=== PATIENT | male | born 1970 | race Caucasian/White ===

== ENCOUNTER → 2016-04-25 | Outpatient (CLI) | payer MEDICARE ==
--- NOTE | 2016-04-25 14:59 | XR ---
EXAMINATION TYPE: XR shoulder complete LT DATE OF EXAM: 04/25/2016 2:51 PM COMPARISON: NONE HISTORY: Pain TECHNIQUE: Shoulder examined in 3 views FINDINGS: The humeral head articulates with the glenoid. The acromio-clavicular junction is normal. No acute fractures or dislocations are evident. Intracapsular joint calcifications appear to be present. A follow up study can be performed 7-10 days from acute trauma for continued pain. IMPRESSION: 1. Intracapsular joint calcifications. 2. An acute osseous abnormality is not identified.
== END | disposition home or self-care (01) ==
LOC: RADXRMAIN 14:38
PROVIDERS: ATTEND Family Medicine
DX: M25.512 Pain in left shoulder (principal)

== ENCOUNTER → 2016-07-04 | Outpatient (CLI) | payer MEDICARE ==
--- NOTE | 2016-07-04 17:46 | MR ---
EXAMINATION TYPE: MR lumbar spine wo con DATE OF EXAM: 07/04/2016 3:43 PM COMPARISON: NONE HISTORY: LBP, BLE radic, loss of bowel control, surgery 1999 Multiplanar, MultiSpin echo imaging of the lumbar spine was performed. L1-L2: Mild disc desiccation. Mild subligamentous disc herniation is noted. Mild effacement ventral t hecal sac. No evidence for central stenosis. No evidence for foraminal encroachment. L2-L3: Normal disc appearance without desiccation. No herniation, protrusion or disc bulging. No ca nal stenosis is present. Foramina are patent bilaterally. L3-L4: Normal disc appearance without desiccation. No herniation, protrusion or disc bulging. No ca nal stenosis is present. Foramina are patent bilaterally. L4-L5: Moderate to severe disc desiccation noted. Degenerative endplate marrow change. Left hemilamin ectomy changes suggested at this level. Probable granulation tissue. No definite evidence for central stenosis. Mild bilateral foraminal encroachment. Facet joint arthropathy. L5-S1: Normal disc appearance without desiccation. No herniation, protrusion or disc bulging. No ca nal stenosis is present. Foramina are patent bilaterally. Lumbar segments are intact. No paraspinal masses are identified. Conus medullaris has a normal appe arance. Apparent thickening of the cauda equina to be postoperative in nature however I cannot exclud e arachnoiditis. L1 hemangioma. IMPRESSION: 1. Subligamentous herniation noted at L1-2 without giancarlo central stenosis although there is constrict ion of the thecal sac. 2. Postoperative changes at L4-5. Degenerative disc disease at this level. 3. Thickening of the cauda equina may reflect arachnoiditis. Correlate clinically.
== END | disposition home or self-care (01) ==
LOC: RADMRIMAIN 15:06
PROVIDERS: ATTEND Family Medicine
DX: M51.26 Other intervertebral disc displacement, lumbar region (principal); M51.36 Other intervertebral disc degeneration, lumbar region
CPT/HCPCS: 72148

== ENCOUNTER → 2016-09-04 | Outpatient (CLI) | payer MEDICARE ==
--- NOTE | 2016-09-04 21:05 | MR ---
EXAMINATION TYPE: MR thoracic spine wo con DATE OF EXAM: 09/04/2016 COMPARISON: NONE HISTORY: Intervertebral disc displacement thoracic region per order. TECHNIQUE: Multiplanar, multisequence imaging of thoracic spine is performed without contrast FINDINGS: Surgical change C3-C5 level is suspected on sagittal T2 counting sequence. Spinal cord leyla ws normal course, caliber, and signal as it courses the thoracic spine. Vertebral body heights and a lignment are satisfactory. Disc space heights are maintained. There are small posterior disc herniati on seen T8-T9 and T11-T12 levels on sagittal images. Additional tiny disc herniation is noted T10-T11 level on sagittal image. Bone marrow signal intensity is preserved. No significant spurring is seen. Review of the axial images confirms right paracentral disc protrusion effacing anterolateral thecal s ac T8-T9 level on axial image 14, bilateral neural foramina are patent. Axial images at T11-T12 level show broad-based central disc protrusion effacing anterior thecal sac a nd mild ligamentum flavum hypertrophy effacing posterior lateral thecal sac and axial image 5, bilate ral neural foramina remain patent. Remainder levels are felt within normal limits on axial images. IMPRESSION: Multilevel small posterior disc herniations in the lower thoracic spine as detailed above .
== END | disposition home or self-care (01) ==
LOC: RADMRIMAIN 19:31
PROVIDERS: ATTEND Neurological Surgery
DX: M51.24 Other intervertebral disc displacement, thoracic region (principal); M54.12 Radiculopathy, cervical region
CPT/HCPCS: 72146

== ENCOUNTER → 2016-09-05 | Outpatient (CLI) | payer MEDICARE ==
--- NOTE | 2016-09-07 08:51 | MR ---
EXAMINATION TYPE: MR cervical spine wo con DATE OF EXAM: 09/05/2016 COMPARISON: NONE HISTORY: Pain TECHNIQUE: Multiplanar, multisequence images of the cervical spine were acquired. C2-C3: No evidence for degenerative disc disease. No disc bulge/herniation or protrusion. No Canal stenosis. Foramina are patent bilaterally. Facet arthropathy noted. C3-C4: Postsurgical change. There is facet arthropathy but no canal stenosis, disc herniation or fora amanda encroachment. C4-C5: Postsurgical change with uncovertebral joint hypertrophy. Mild bilateral foraminal encroachmen t and facet arthropathy. No canal stenosis or disc herniation. C5-C6: Degenerative disc disease with uncovertebral joint hypertrophy and left lateral disc bulging w ith severe left-sided foraminal encroachment and moderate right-sided foraminal encroachment. No Conley l stenosis. C6-C7: Broad-based central disc protrusion with a focal left paracentral component which may represen t a small extruded disc fragment. There is mild effacement of thecal sac. Mild foraminal encroachment bilaterally. There is facet arthropathy. C7-T1: No evidence for degenerative disc disease. No disc bulge/herniation or protrusion. No Canal stenosis. Foramina are patent bilaterally. Cervical segments are intact. There is normal alignment. Cervical spinal cord is of normal signal. Craniovertebral junction relationships are within normal limits. IMPRESSION: 1. Postsurgical change with suspected disc herniation C6-C7 with possible extruded fragment. Postcont rast imaging recommended for further characterization and to exclude other etiologies. 2. Posterior cervical spondylosis with uncovertebral joint facet hypertrophy and disc bulging greater laterally to left C5-C6 significant left-sided foraminal encroachment.
== END | disposition home or self-care (01) ==
LOC: RADMRIMAIN 21:24
PROVIDERS: ATTEND Neurological Surgery
DX: M50.122 Cervical disc disorder at C5-C6 level with radiculopathy (principal); M47.22 Other spondylosis with radiculopathy, cervical region; M46.02 Spinal enthesopathy, cervical region; M51.24 Other intervertebral disc displacement, thoracic region; Z98.890 Other specified postprocedural states
CPT/HCPCS: 72141

== ENCOUNTER → 2016-11-27 | Outpatient (CLI) | payer MEDICARE ==
--- NOTE | 2016-11-27 10:25 | XR ---
EXAMINATION TYPE: XR chest 2V DATE OF EXAM: 11/27/2016 COMPARISON: NONE HISTORY: Presurgical study. History of hypertension. TECHNIQUE: Frontal and lateral views of the chest are obtained. FINDINGS: There is no focal air space opacity, pleural effusion, or pneumothorax seen. The cardiac silhouette size is within normal limits. The osseous structures are intact. IMPRESSION: No acute cardiopulmonary process.
== END | disposition home or self-care (01) ==
LOC: RADXRMAIN 09:49
PROVIDERS: ATTEND Physician Assistant
DX: Z01.818 Encounter for other preprocedural examination (principal); Z01.810 Encounter for preprocedural cardiovascular examination
CPT/HCPCS: 71020; 87070; 93005

== ENCOUNTER → 2017-05-21 | Outpatient (CLI) | payer MEDICARE ==
--- NOTE | 2017-05-21 20:38 | MR ---
EXAMINATION TYPE: MR lumbar spine wo con DATE OF EXAM: 05/21/2017 COMPARISON: 07/04/2016 HISTORY: low back pain TECHNIQUE: Multiplanar, multisequence images of the lumbar spine were acquired. FINDINGS: The lumbar spine vertebral bodies maintain normal vertebral body heights and alignment. Modic type II endplate changes are seen of the inferior endplate of L4 and minimally of the superior endplate of L 5. Multilevel disc desiccation is seen at L1-L2 and L4-L5. Conus medullaris is unremarkable terminati ng at L1. T1/T2 hyperintense vertebral body hemangioma is seen of L1. Remainder of the bone marrow si gnal is unremarkable. L1-L2: There is redemonstration of a right paracentral subligamentous disc herniation very minimally increased from the prior exam of 07/04/2016. This results in mild spinal canal stenosis but no signifi cant neural foraminal narrowing. No buckling of the nerve roots is seen. L2-L3: Normal disc appearance without desiccation. No herniation, protrusion or disc bulging. No ca nal stenosis is present. Foramina are patent bilaterally. L3-L4: There is a new very small central disc herniation superimposed upon a broad-based disc bulge w ithout significant spinal canal stenosis or neural foraminal narrowing. Ligamentum flavum buckling an d mild facet arthropathy are incidentally noted. L4-L5: There is a broad-based disc bulge and disc desiccation resulting in mild bilateral neural fora amanda narrowing. No spinal canal stenosis. Mild facet arthropathy is also seen. L5-S1: There is a new very small central disc herniation/protrusion superimposed upon a broad-based d isc bulge without spinal canal stenosis or neural foraminal narrowing. Hemilaminectomy is noted. IMPRESSION: 1. Minimal progression in the known right paracentral subligamentous disc herniation at L1-L2 now res ulting in mild spinal canal stenosis. 2. New very small central disc herniations at L3-L4 and L5-S1 without spinal canal stenosis or neural foraminal narrowing. Pain 3. Degenerative disc disease at L4-L5 resulting in mild bilateral neural foraminal narrowing.
== END | disposition home or self-care (01) ==
LOC: RADMRIMAIN 18:11
PROVIDERS: ATTEND Neurological Surgery
DX: M48.061 Spinal stenosis, lumbar region without neurogenic claudication (principal); M99.73 Connective tissue and disc stenosis of intervertebral foramina of lumbar region; M51.17 Intervertebral disc disorders with radiculopathy, lumbosacral region
CPT/HCPCS: 72148

== ENCOUNTER → 2017-08-15 | Outpatient (CLI) | payer MEDICARE ==
--- NOTE | 2017-08-16 07:05 | CT ---
EXAMINATION TYPE: CT pelvis w con DATE OF EXAM: 08/15/2017 COMPARISON: NONE HISTORY: Bowel and bladder incontinence. CT DLP: 1067 mGycm Automated exposure control for dose reduction was used. CONTRAST: Performed with oral and with IV Contrast, patient injected with 100 mL of Isovue 300. FINDINGS: Appendix is incidentally mildly dilated at 7 to 8 mm from base of cecum without surrounding inflammat ory change. Oral contrast does not reach colonic level making evaluation of distal bowel suboptimal. There is no suspicious small or large bowel dilatation seen. Occasional diverticula are seen in the s igmoid colon without evidence of diverticulitis. Prostate gland is normal in size. Visualized portion of bladder is unremarkable. There is no concerning pelvic fluid collection. There is no suspicious greater than 1 cm pelvic adeno aliya. Metallic hardware from right hip arthroplasty causes streak artifact limiting evaluation of pelvic st ructures. Remainder osseous structures are intact. IMPRESSION: NO SUSPICIOUS FINDING IS SEEN TO ACCOUNT FOR PATIENT'S SYMPTOMS.
== END | disposition home or self-care (01) ==
LOC: RADCTMAIN 16:22
PROVIDERS: ATTEND Psychiatry & Neurology Neurology
DX: R52 Pain, unspecified (principal)
CPT/HCPCS: 72193; Q9967

== ENCOUNTER → 2018-03-26 | Outpatient (CLI) | payer MEDICARE ==
--- NOTE | 2018-03-26 14:29 | XR ---
EXAMINATION TYPE: XR foot complete RT DATE OF EXAM: 03/26/2018 CLINICAL HISTORY: pain TECHNIQUE: Frontal, lateral and oblique images of the right foot are obtained. COMPARISON: None. FINDINGS: There is no acute fracture/dislocation evident. The joint spaces appear within normal jaimes its. The overlying soft tissue appears unremarkable. IMPRESSION: There is no acute fracture or dislocation. ICD 10 NO FRACTURE, INITIAL EVALUATION
== END ==
LOC: RADXRMAIN 14:11
PROVIDERS: ATTEND Family Medicine
DX: M79.674 Pain in right toe(s) (principal)

== ENCOUNTER → 2020-04-14 | Outpatient (CLI) | payer MEDICARE ==
[2020-04-14 10:28] LABS: MCH 29.5 pg (25.0-35.0); MCHC 32.7 g/dL (31.0-37.0); MCV 90.5 fL (80.0-100.0); Mean Platelet Volume 7.2; Platelet Count 182 k/uL (150-450); RBC 6.85 m/uL (4.30-5.90); RDW 14.3 % (11.5-15.5); WBC 7.2 k/uL (3.8-10.6)
[2020-04-14 10:53] LABS: HGB 20.2 gm/dL (13.0-17.5)
== END | disposition home or self-care (01) ==
LOC: LABPAT 10:01
PROVIDERS: ATTEND Internal Medicine Cardiovascular Disease
DX: Z01.818 Encounter for other preprocedural examination (principal); I25.10 Atherosclerotic heart disease of native coronary artery without angina pectoris
CPT/HCPCS: 36415; 80051; 82565; 84520; 85027

== ENCOUNTER 2020-04-19 07:57 | Day surgery (SDC) | payer MEDICARE ==
[2020-04-15 10:41] VITALS: BMI 34.5
[~2020-04-19 07:57] MED LIST: ALPRAZolam 0.25 MG TAB PO PRN; ALPRAZolam 0.5 MG TAB PO PRN; ASPIRIN 325 MG TAB PO ONE; HEPARIN SODIUM,PORCINE 10,000 UNIT in SODIUM CHLORIDE 0.9% 1,000 ML IRRIGATION PRN; HEPARIN SODIUM,PORCINE 2,500 UNIT in SODIUM CHLORIDE 0.9% 250 ML IRRIGATION PRN; NITROGLYCERIN SL TABS 0.4 MG TAB SUBLINGUAL PRN; SODIUM CHLORIDE 0.9% 1,000 ML in EMPTY BAG 1 BAG IV ONE
[2020-04-19] MEDS ORDERED: SODIUM CHLORIDE 0.9% 1,000 ML IV ONE (08:20)
[2020-04-19 08:26] VITALS: TEMP 98.9
[2020-04-19] MEDS ORDERED: LIDOCAINE 1% INJ 10MG/ML (20 ML MDV) ONE (08:33)
[2020-04-19] MEDS ORDERED: VERAPAMIL 2.5 MG/ML 2 ML AMP ONE (08:33)
[2020-04-19] MEDS ORDERED: MIDAZOLAM 2 MG/2 ML VIAL IVP ONE (08:55)
[2020-04-19] MEDS ORDERED: fentaNYL (PF) 50 MCG/ML 2 ML AMP IVP ONE (08:55)
[2020-04-19] MEDS ORDERED: fentaNYL (PF) 50 MCG/ML 2 ML AMP ONE (08:55)
[2020-04-19] MEDS ORDERED: LIDOCAINE 1% INJ 10MG/ML (20 ML MDV) SQ ONE (08:57)
[2020-04-19] MEDS ORDERED: VERAPAMIL SYRINGE (5 MG/10 ML) INTRAARTER ONE (09:00)
[2020-04-19] MEDS ORDERED: HEPARIN SODIUM 1,000 UN/ML (10ML VL) IV ONE (09:02)
[2020-04-19] MEDS ORDERED: IOPAMIDOL-370 125ML BTL INJ ONE (09:12)
[2020-04-19] MEDS ORDERED: RX INFO: IV CONTRAST WAS GIVEN 1 EACH MISC MISCELLANE PRN (09:28)
[2020-04-19] MEDS ORDERED: SODIUM CHLORIDE 0.9% 1,000 ML IV SCH (09:30)
--- NOTE | 2020-04-19 09:33 | P.CARDCATH ---
Date of Procedure: 04/19/20 Preoperative Diagnosis: Syncope. Positive stress test Postoperative Diagnosis: Normal coronary arteries and normal LV function Procedure(s) Performed: Left heart catheterization with left ventriculography Description of Procedure: HISTORY: This is a 50-year-old gentleman was recently seen for evaluation of symptoms of dizziness and syncope. An echocardiogram was described as showing ejection fraction of 40-45%. Stress test was suggestive of possible ischemia in the inferolateral wall. Patient is advised to have a cardiac catheterization for definitive diagnosis. CONSENT:I have discussed the risks, benefits and alternative therapies for the above-mentioned procedure and for both sedation/analgesia as well as necessary blood product administration, if indicated, as they pertain to this patient. The patient has indicated understanding and acceptance of the risks and procedures discussed. PROCEDURE: Patient was brought to the lab in a fasting state. Patient was given some IV sedation. The right wrist is infiltrated with lidocaine and right artery was entered using Seldinger technique. A 6-[place] catheter was left in place and selective coronary arteriography and left ventriculography was performed. Patient tolerated the procedure well. TR band was applied for hemostasis. No immediate complications were noted and patient was transferred to [facility] in a stable condition Conscious Sedation: Versed 1mg Fentanyl 50 g Duration 18minutes HEMODYNAMICS: Aortic pressure is 110/70. The left ventricular end-diastolic pressure is 12. There was no gradient across the aortic valve SELECTIVE CORONARY ARTERIOGRAPHY: LEFT MAIN: Normal length and free of any occlusive disease THE LEFT ANTERIOR DESCENDING CORONARY ARTERY: . Good caliber vessel wrapping around the apex. Gives rise to diagonal and septal branches. Free of occlusive disease THE LEFT CIRCUMFLEX AND IS CORONARY ARTERY: . Moderate caliber vessel giving rise to moderate-sized OM branch. The circumflex is a nondominant in distribution. Free of occlusive disease THE RIGHT CORONARY ARTERY: . Good caliber vessel and dominant in distribution. Mild ectatic area in the proximal portion, otherwise free of any occlusive disease LEFT VENTRICULOGRAPHY: . Showed normal-sized cardiac silhouette with good systolic function FINAL IMPRESSION: Normal coronary arteries except mild ectasia of the right coronary artery. Preserved LV function PLAN: Continue for further evaluation of the dizziness and syncope. Continue r isk factor modification PROGNOSIS: . Good
[2020-04-19 10:22] VITALS: RESP 16
[2020-04-19 14:24] VITALS: BP 118/76; PULSE 72
== END 2020-04-19 14:44 | disposition home or self-care (01) ==
LOC: CATHCVL 07:57
PROVIDERS: ATTEND Internal Medicine Cardiovascular Disease
DX: I77.89 Other specified disorders of arteries and arterioles (principal); R55 Syncope and collapse; R42 Dizziness and giddiness; E78.5 Hyperlipidemia, unspecified; I10 Essential (primary) hypertension; E78.00 Pure hypercholesterolemia, unspecified; R06.00 Dyspnea, unspecified; F17.290 Nicotine dependence, other tobacco product, uncomplicated; R94.39 Abnormal result of other cardiovascular function study; Z88.1 Allergy status to other antibiotic agents
CPT/HCPCS: 93458; C1769; C1894; J2250; J2001; J3010; J1644; Q9967

== ENCOUNTER → 2020-12-05 | Outpatient (CLI) | payer MEDICARE ==
--- NOTE | 2020-12-06 03:57 | MR ---
EXAMINATION TYPE: MR lumbar spine wo con DATE OF EXAM: 12/05/2020 COMPARISON: None HISTORY: Lower back and leg pain x6 months Multiplanar multiecho imaging of the lumbar spine without contrast. Lumbar vertebra have normal alignment. There is some degenerative mild disc space narrowing in the alexander mbar spine at L3-4 and L4-5. There is no compression fracture. There is posterior disc bulging and he rniation at L1-2 and L3-4. There is no significant spinal stenosis seen. There is no compression frac ture. I see no bony destructive process. There is no lumbar paraspinal mass. Facet joints are intact. The lumbar neural foramina are fairly well-maintained. IMPRESSION: Mild to moderate Posterior concentric disc bulging and herniation at L1-2 and L3-4. No significant sp inal stenosis. No change at L1-2 level compared to old exam. L3-4 disc herniation is mostly new compared to old exam .
== END | disposition home or self-care (01) ==
LOC: RADMRIMAIN 14:48
PROVIDERS: ATTEND Family Medicine
DX: M51.26 Other intervertebral disc displacement, lumbar region (principal)
CPT/HCPCS: 72148

== ENCOUNTER → 2021-02-25 | Outpatient (CLI) | payer MEDICARE | END | disposition home or self-care (01) | LOC: LABPAT 14:24 | PROVIDERS: ATTEND Nurse Practitioner Adult Health | DX: Z20.822 Contact with and (suspected) exposure to COVID-19 (principal) | CPT/HCPCS: 87635 ==

== ENCOUNTER 2021-02-28 07:56 | Day surgery (SDC) | payer MEDICARE ==
[2021-02-21 10:09] VITALS: BMI 33.6
[~2021-02-28 07:56] MED LIST changes: -ALPRAZolam 0.25 MG TAB PO PRN; -ALPRAZolam 0.5 MG TAB PO PRN; -ASPIRIN 325 MG TAB PO ONE; -HEPARIN SODIUM,PORCINE 10,000 UNIT in SODIUM CHLORIDE 0.9% 1,000 ML IRRIGATION PRN; -HEPARIN SODIUM,PORCINE 2,500 UNIT in SODIUM CHLORIDE 0.9% 250 ML IRRIGATION PRN; -NITROGLYCERIN SL TABS 0.4 MG TAB SUBLINGUAL PRN; +SODIUM CHLORIDE 0.9% 1,000 ML IV SCH; -SODIUM CHLORIDE 0.9% 1,000 ML in EMPTY BAG 1 BAG IV ONE
[2021-02-28] MEDS ORDERED: SODIUM CHLORIDE 0.9% 500 ML 500 ML IV ONE (08:09)
[2021-02-28 08:18] VITALS: BP 120/87; PULSE 74; RESP 16; TEMP 98.4
--- NOTE | 2021-02-28 17:06 | P.EPPROC ---
- EP Procedure Note Electrophysiology Procedure Note: Diagnosis Recurrent dizzy spells and syncope Twelve-lead EKG Sinus rhythm normal OR narrow QRS normal ST segments baseline artifact Normal QT interval Tilt table test Tilt table test per protocol Baseline blood pressure 106/76 mmHg Baseline heart rate 68 beats a minute patient was tilted upright at an angle of 70 per protocoland will change it heart rate no significant change in blood pressure is laid supine at the end of the procedure Impression Normal twelve-lead EKG Normal heart rate and blood pressure response to upright tilting
== END 2021-02-28 10:01 | disposition home or self-care (01) ==
LOC: CATHEP 07:56
PROVIDERS: ATTEND Internal Medicine Clinical Cardiac Electrophysiology
DX: R55 Syncope and collapse (principal); I25.10 Atherosclerotic heart disease of native coronary artery without angina pectoris; I42.8 Other cardiomyopathies; I10 Essential (primary) hypertension; E78.5 Hyperlipidemia, unspecified; Z72.0 Tobacco use; Z79.890 Hormone replacement therapy; Z88.1 Allergy status to other antibiotic agents; Z79.899 Other long term (current) drug therapy
CPT/HCPCS: 93660

== ENCOUNTER → 2021-05-02 | Outpatient (CLI) | payer MEDICARE ==
--- NOTE | 2021-05-03 08:15 | MR ---
EXAMINATION TYPE: MR angio head wo/neck wo/w con DATE OF EXAM: 05/02/2021 COMPARISON: NONE HISTORY: Frequent dizzy spells for past 5 years TECHNIQUE: Time of flight images focusing on the [place] were performed without contrast.. 2-D and 3-D postprocessing imaging is performed on an independent workstation. MR of the neck without and with IV contrast, patient injected with 10 cc of gadolinium. FINDINGS: Normal three-vessel origin from the aortic arch. Normal origin right common carotid artery from right brachiocephalic artery. No significant stenosis in the common or internal carotid arteries bilaterally with particular attention to the carotid bulbs. External carotid arteries bilaterally sh ow no significant stenosis. There are codominant vertebral arteries filling the basilar artery. No significant focal stenosis or aneurysm in the posterior circulation. There are patent bilateral posterior communicating arteries. Images of the anterior circulation show patent anterior communicating artery. There is no significant focal stenosis or aneurysm in the anterior circulation. IMPRESSION: 1. No significant stenosis in common or internal carotid arteries bilaterally. 2. No significant stenosis or aneurysm at the level of the [place].
== END | disposition home or self-care (01) ==
LOC: RADMRIMAIN 15:26
PROVIDERS: ATTEND Family Medicine
DX: R55 Syncope and collapse (principal); R42 Dizziness and giddiness
CPT/HCPCS: 70544; 70549; A9585

== ENCOUNTER → 2021-09-18 | Outpatient (CLI) | payer MEDICARE ==
[2021-09-18 14:33] LABS: Appearance,Urine Clear (Clear); Bilirubin,Urine Negative (Negative); Blood,Urine Negative (Negative); Color,Urine Yellow (Yellow); Ketones,Urine Negative (Negative); Nitrite,Urine Negative (Negative); PH, Urine 5.5 (5.0-8.0); Specific Gravity,Urine 1.027 (1.001-1.030); Urobilinogen,Urine 0.2 (0.2,1.0)
[2021-09-18 15:05] LABS: Anion Gap 13.9 mmol/L (10.00-18.00); BUN/Creat Ratio 16.64 Ratio (12.00-20.00); Blood Urea Nitrogen 21.8 mg/dL (9.0-27.0); Calcium 9.3 mg/dL (8.7-10.3); Carbon Dioxide 21.4 mmol/L (20.0-27.5); Non-African American GFR(CKD) 62.2 (60.0-200.0); Potassium 4.2 mmol/L (3.5-5.5)
[2021-09-18 15:06] LABS: Basophils # (A) 0.04 X 10*3/uL (0.00-0.10); Basophils % (A) 0.4 %; Eosinophils % (A) 1.9 %; HCT 52.4 % (39.6-50.0); HGB 16.5 g/dL (13.0-17.0); Immature Grans, Automated 0.5 %; Lymphocytes # (A) 2.05 X 10*3/uL (0.90-5.00); Lymphocytes % (A) 19.9 %; MCH 28.5 pg (27.0-32.0); MCHC 31.5 g/dL (32.0-37.0); MCV 90.5 fL (80.0-97.0); Mean Platelet Volume 9.9 fL (9.5-12.2); Monocytes # (A) 1.17 X 10*3/uL (0.20-1.00); Monocytes % (A) 11.4 %; NRBC Per 100 WBC 0 /100 WBCS (0.0-0.0); Neutrophils # (A) 6.79 X 10*3/uL (1.80-7.70); Neutrophils % (A) 65.9 %; Platelet Count 197 X 10*3/uL (140-440); RBC 5.79 X 10*6/uL (4.40-5.60); RDW 15.3 % (11.5-14.5)
== END | disposition home or self-care (01) ==
LOC: LABPAT 09:41
PROVIDERS: ATTEND Urology
DX: Z01.812 Encounter for preprocedural laboratory examination (principal); N52.9 Male erectile dysfunction, unspecified
CPT/HCPCS: 80048; 81003; 85025; 87086

== ENCOUNTER 2021-09-25 07:30 | Day surgery (SDC) | payer MEDICARE ==
[2021-09-21 13:15] VITALS: BMI 34.0
--- NOTE | 2021-09-22 13:49 | P.HPIHPCON ---
History of Present Illness H&P Date: 09/22/21 Chief Complaint: erectile dysfunction This is 51-year-old male with history of erectile dysfunction patient had failed PDE 5 inhibitors. Patient was interested in proceeding with penile prostheses. Discussed with him the alternative of intraurethral prostaglandin and intr acavernosal injections. Discussed with him risk and benefit of both approaches. Patient was interested in surgical correction for his erectile dysfunction was interested in a inflatable penile prostheses. Discussed with him the risk which includes but not limited to bleeding, infection, device malfunction, device erosion. Discussed with him also the potential of patient and partner unsatisfaction. Discussed with him the operation in detail and the mechanism of how the prostheses work. He was also provided literature and video to review. Discussed also with him if he does develop an infection or erosion that it would require removal of the entire penile prostheses, and with delayed salvage. Discussed also with him if there is a device malfunction that it would require replacement. Discussed risk of anesthesia with him. He understood all the risk and agreed to proceed Consent for Procedure: I have explained the operation/procedure to the patient, including the risks, benefits, side effects, alternative therapies (including not receiving the proposed treatment or service), the likelihood of the patient achieving his/her goals, and potential recuperation problems for the procedure/sedation/analgesia, as well as any blood products, if indicated. I also explained to the patient the risks, benefits and side effects of the alternatives, as well as the risks related to not receiving the proposed procedure, care, treatment, or services. Past Medical History Past Medical History: GERD/Reflux, Hyperlipidemia, Hypertension, Liver Disease, Osteoarthritis (OA), Thyroid Disorder Additional Past Medical History / Comment(s): GOUT, fatty liver, kidneys "shut down"- pt states due to dehydration., Cardiomyopathy . History of Any Multi-Drug Resistant Organisms: None Reported Past Surgical History: Back Surgery, Heart Catheterization, Hernia Repair, Joint Replacement, Tonsillectomy Additional Past Surgical History / Comment(s): LAMINECTOMY X 2, disk replacement -cerivical, CERVICAL FUSION X2, TOTAL RIGHT HIP replacement, VASECTOMY, INGROWN TOENAIL SURGERY, HEMORRHOIDECTOMY , "SPORTS HERNIA" Past Anesthesia/Blood Transfusion Reactions: Previous Problems w/ Anesthesia Additional Past Anesthesia/Blood Transfusion Reaction / Comment(s): STATES COMBATIVE WHEN HE WOKE UP. Past Psychological History: Anxiety Additional Psychological History / Comment(s): states quick temper, anger. Smoking Status: Never smoker Past Alcohol Use History: Occasional Additional Past Alcohol Use History / Comment(s): CHEWS TOBACCO Past Drug Use History: Marijuana Additional Drug Use History / Comment(s): occasional edible marijuana - Past Family History Mother Family Medical History: No Reported History Medications and Allergies Home Medications Medication Instructions Recorded Confirmed Type Citalopram Hydrobromide [CeleXA] 20 mg PO DAILY 04/15/20 09/21/21 History Fenofibrate 160 mg PO DAILY 04/15/20 09/21/21 History Levothyroxine Sodium [Synthroid] 25 mcg PO QAM 04/15/20 09/21/21 History Metoprolol Succinate [Toprol XL] 50 mg PO QAM 04/15/20 09/21/21 History allopurinoL [Zyloprim] 100 mg PO BID 04/15/20 09/21/21 History Allergies Allergy/AdvReac Type Severity Reaction Status Date / Time cephalexin [From Keflex] Allergy Itching Verified 09/21/21 12:42 levofloxacin [From Levaquin] Allergy JAUNDICE Verified 09/21/21 12:42 sulfamethoxazole Allergy Itching Verified 09/21/21 12:42 [From Bactrim] trimethoprim [From Bactrim] Allergy Itching Verified 09/21/21 12:42 NSAIDS (Non-Steroidal AdvReac Unknown states no Verified 09/21/21 13:05 Anti-Inflamma nsaids due to kidneys. Surgical - Exam - General no distress, no pain - Eyes normal ocular movement, no pale - ENT normal nares, normal mucosa - Respiratory normal expansion, normal respiratory effort - Abdomen Abdomen: soft, non tender Assessment and Plan Assessment: OR for inflatable penile prostheses
[~2021-09-25 07:30] MED LIST changes: +CLINDAMYCIN 600 MG in DEXTROSE 5% IN WATER 50 ML IVPB PRN; +DEXAMETHASONE SOD PHOSPHATE 4 MG/ML 1 ML VIAL IV ONE; +GENTAMICIN 120 MG in SODIUM CHLORIDE 0.9% 100 ML IVPB PRN; +HYDROmorphone 0.5 MG/0.5 ML SYRINGE IVP PRN; +LACTATED RINGERS 1,000 ML IV ONE; +LIDOCAINE 1% (10MG/ML) FOR IV START INTRADERMA PRN; +MIDAZOLAM 2 MG/2 ML VIAL IV PRN; +ONDANSETRON 4 MG/2 ML VIAL IVP ONE; -SODIUM CHLORIDE 0.9% 1,000 ML IV SCH
[2021-09-25] MEDS ORDERED: SODIUM CHLORIDE 0.9% IRRIGATION ONE (07:59)
[2021-09-25] MEDS ORDERED: GENTAMICIN IRRIGATION ONE (07:59)
[2021-09-25] MEDS ORDERED: LACTATED RINGERS 1,000 ML IV ONE (09:46)
--- NOTE | 2021-09-25 09:46 | P.OP ---
Date of Procedure: 09/25/21 Preoperative Diagnosis: Erectile dysfunction Postoperative Diagnosis: same Procedure(s) Performed: Insertion of inflatable penile prostheses Implants: AMS 700, CX pump Anesthesia: GETA Surgeon: Edilberto Romero Wall Worker #1: Gary Rizzo Estimated Blood Loss (ml): 50 Pathology: other Condition: stable Disposition: PACU Indications for Procedure: This is 51-year-old male with history of erectile dysfunction patient had failed PDE 5 inhibitors. Patient was interested in proceeding with penile prostheses. Discussed with him the alternative of intraurethral prostaglandin and intracavernosal injections. Discussed with him risk and benefit of both approaches. Patient was interested in surgical correction for his erectile dysfunction was interested in a inflatable penile prostheses. Discussed with him the risk which includes but not limited to bleeding, infection, device malfunction, device erosion. Discussed with him also the potential of patient and partner unsatisfaction. Discussed with him the operation in detail and the mechanism of how the prostheses work. He was also provided literature and video to review. Discussed also with him if he does develop an infection or erosion that it would require removal of the entire penile prostheses, and with delayed salvage. Discussed also with him if there is a device malfunction that it would require replacement. Discussed risk of anesthesia with him. He understood all the risk and agreed to proceed Description of Procedure: Patient brought to the operating room, general anesthesia was induced. He was prepped and draped in sterile fashion and placed in the supine position. Next an incision made along the infrapubic space. Subcutaneous tissue was dissected down using electrocautery. Dissection was carried down to the corporal bodies. 2 stay stitches were placed in each corpora using 3-0 PDS, staying lateral to the neurovascular bundle. Next a rectus fascia was incised, and a subfascial space was created using blunt dissection for the reservoir. Next attention was carried to the corporal bodies. A corporotomy was made along the right side. Next the corporal was dilated distally and proximally using the Hegar dilators. Starting with 9-Swiss and going up to 13-Swiss. Next a corporotomy was made along the left side and this was dilated using the Hegar dilator starting with 9-Swiss and going up to 13-Swiss. Next the corporal bodies were measured and it measured 12 cm distally on each side and 9 cm proximally on each side. Next the reservoir was prepped on the back table. It was filled with 65 mL's. Next the reservoir was placed subfascially. And it was inflated 65 mL's and there was no evidence of any back pressure. Next the cylinders were placed on each corpora using the Geoffrey needle and the introducer. An 18 cm cylinder with 3 cm rear tip digital media intern were placed on each . Next the corporotomies were closed using 3-0 PDS. The fascial space was also closed using 0 Vicryl. Next a space was created for the pump in the right scrotum. Next all the tubes were connected. the bump was recycled and it was cycling without any problems . Next the subcutaneous tissues were closed using 3-0 Vicryl. The skin was closed using 4-0 Monocryl. Dermabond was applied to the incision. Patient tolerated procedure well was taken to recovery in stable condition
[2021-09-25] MEDS ORDERED: HYDROcodone/APAP 5-325MG 1 EACH TAB ONE (10:35)
[2021-09-25] MEDS ORDERED: TAMSULOSIN 0.4 MG CAP.ER.24H PO ONE (13:07)
[2021-09-25] MEDS ORDERED: GENTAMICIN PER PHARMACY MISCELLANE PRN (14:19)
[2021-09-25] MEDS ORDERED: VANCOMYCIN IV PER PHARMACY 1 EACH MISC MISCELLANE PRN (14:21)
[2021-09-25] MEDS: HYDROcodone/APAP 5-325MG 1 EACH TAB PO PRN ×2 (14:28→19:49)
[2021-09-25] MEDS: SODIUM CHLORIDE 0.9% 1,000 ML IV SCH (14:38)
[2021-09-25] MEDS: LACTATED RINGERS 1,000 ML IV SCH (15:27)
[2021-09-25] MEDS ORDERED: GENTAMICIN 120 MG in SODIUM CHLORIDE 0.9% 100 ML IVPB ONE (20:00)
[2021-09-25] MEDS ORDERED: VANCOMYCIN 1,500 MG in SODIUM CHLORIDE 0.9% 250 ML IVPB ONE (20:00)
[2021-09-25] MEDS: allopurinoL 100 MG TAB PO SCH (21:57)
[2021-09-26] MEDS: HYDROcodone/APAP 5-325MG 1 EACH TAB PO PRN ×3 (03:06→11:10)
[2021-09-26] MEDS: LACTATED RINGERS 1,000 ML IV SCH (06:48)
[2021-09-26] MEDS: SODIUM CHLORIDE 0.9% 1,000 ML IV SCH (07:07)
[2021-09-26] MEDS: allopurinoL 100 MG TAB PO SCH (07:14)
[2021-09-26 07:54] VITALS: BP 102/51; PULSE 58; RESP 15; TEMP 98.5
[2021-09-26] MEDS ORDERED: LEVOTHYROXINE 25 MCG TAB PO SCH (09:00)
[2021-09-26] MEDS ORDERED: CITALOPRAM HYDROBROMIDE 20 MG TAB PO SCH (09:00)
[2021-09-26] MEDS ORDERED: METOPROLOL SUCCINATE (ER) 50 MG TAB.ER.24H PO SCH (09:00)
--- NOTE | 2021-09-26 09:46 | P.DS ---
Providers Date of admission: 09/25/21 05:59 Attending physician: Edilberto Romero MD Primary care physician: [facility] Course: This is a 51 yo male with hx of erectile dysfunction. Underwent an Inflatable penile prosthesis, please see op note dated 09/25 for surgery details. He was admitted to the hospital post operatively. He did well in the immediate post op period. he was discharged home on postoperative day #1, at time of discharge he was tolerating a diet, ambulating, pain was controlled Plan - Discharge Summary Discharge Rx Participant: Yes New Discharge Prescriptions: New HYDROcodone/APAP 5-325MG [Candia 5-325] 1 tab PO Q4HR PRN 3 Days #18 tab PRN Reason: Pain Clindamycin [Cleocin] 150 mg PO Q6H #28 cap No Action Fenofibrate 160 mg PO DAILY Citalopram Hydrobromide [CeleXA] 20 mg PO DAILY allopurinoL [Zyloprim] 100 mg PO BID Levothyroxine Sodium [Synthroid] 25 mcg PO QAM Metoprolol Succinate [Toprol XL] 50 mg PO QAM Discharge Medication List Citalopram Hydrobromide [CeleXA] 20 mg PO DAILY 04/15/20 [History] Fenofibrate 160 mg PO DAILY 04/15/20 [History] Levothyroxine Sodium [Synthroid] 25 mcg PO QAM 04/15/20 [History] Metoprolol Succinate [Toprol XL] 50 mg PO QAM 04/15/20 [History] allopurinoL [Zyloprim] 100 mg PO BID 04/15/20 [History] Clindamycin [Cleocin] 150 mg PO Q6H #28 cap 09/25/21 [Rx] HYDROcodone/APAP 5-325MG [Candia 5-325] 1 tab PO Q4HR PRN 3 Days #18 tab 09/25/21 [Rx] Patient Instructions/Handouts: *Surgery [facility] - (Anesthesia) Discharge Instru ctions Outpatient Surgery, Penile Prosthesis (DC) Activity/Diet/Wound Care/Special Instructions: Apply ice to the scrotum No heavy lifting or straining Pull the pump down along the right side of the scrotum It's normal to see bruising You may shower in 24 hours, no baths
== END 2021-09-26 12:51 | disposition home or self-care (01) ==
LOC: EDSTATUS 07:30 → OR 07:30 → 2ORMAIN 09:48 → 4SSUR 09:48 → UNDODISIN 09-26 12:51 → OR 09-26 12:51
PROVIDERS: ATTEND Urology
DX: N52.9 Male erectile dysfunction, unspecified (principal); I42.9 Cardiomyopathy, unspecified; K21.9 Gastro-esophageal reflux disease without esophagitis; E78.5 Hyperlipidemia, unspecified; I10 Essential (primary) hypertension; M10.9 Gout, unspecified; M19.90 Unspecified osteoarthritis, unspecified site; Z87.19 Personal history of other diseases of the digestive system; Z88.8 Allergy status to other drugs, medicaments and biological substances; Z88.2 Allergy status to sulfonamides; Z88.1 Allergy status to other antibiotic agents; F17.220 Nicotine dependence, chewing tobacco, uncomplicated
CPT/HCPCS: 54401; C1813; J3370; J1580; J1100; J2405

== ENCOUNTER → 2023-05-09 | Outpatient (CLI) | payer MEDICARE ==
--- NOTE | 2023-05-09 18:00 | XR ---
EXAMINATION TYPE: XR shoulder complete LT DATE OF EXAM: 05/09/2023 2:19 PM CLINICAL INDICATION:Male, 53 years old with history of M25.512 Pain left shoulder; [facility] COMPARISON: 04/25/2016 TECHNIQUE: XR shoulder complete LT; examined in AP, internally rotated and scapular Y projections. FINDINGS: No evidence of acute osseous pathology, joint dislocation, or soft tissue swelling. The remaining po rtions of the visualized chest are unremarkable. Multiple calcified joint bodies are seen within the inferior joint layering along the medial humerus. IMPRESSION: 1. No acute osseous pathology. 2. Calcified joint bodies. Findings have progressed from 2017. 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 Further evaluation with MRI is recommended.
== END | disposition home or self-care (01) ==
LOC: RADXRMAIN 14:02
PROVIDERS: ATTEND Family Medicine
DX: M25.512 Pain in left shoulder (principal)

== ENCOUNTER → 2023-05-28 | Outpatient (CLI) | payer MEDICARE ==
--- NOTE | 2023-05-29 05:56 | MR ---
EXAMINATION TYPE: MR shoulder LT wo con DATE OF EXAM: 05/28/2023 COMPARISON: Left shoulder x-ray May 09, 2023 HISTORY: Left shoulder pain for 3 months with difficulty raising arm overhead. TECHNIQUE: Multiplanar, multisequence imaging of the left shoulder is performed without contrast. FINDINGS: Rotator Cuff: Some increased signal in the infraspinatus tendon with focal tear at articular surface measuring 6 mm transversely coronal image 16 x 10 mm AP diameter sagittal image 5. Or prominent incre ased signal with surrounding fluid in the supraspinatus tendon and muscle without focal tear. Subdelt oid/subacromial fluid is noted. Intact subscapularis tendon with surrounding fluid. Rotator cuff musc le bulk is preserved. Acromioclavicular Joint: Mild to moderate narrowing greatest posteriorly is seen. Mild capsular hyper trophy. Loss of underlying fat plane sagittal image 18 is noted. Glenohumeral Joint: Moderate size joint effusion with multiple ossific loose bodies extending inferio rly correlates with x-ray. There is narrowing and inferior medial spurring from the humeral head. Labrum: Increased signal superior labrum consistent with tear is identified. Biceps Tendon: The long head of biceps is in normal location within bicipital groove. Bone marrow signal: No focal abnormal marrow signal is appreciated. Other: No additional significant abnormality is appreciated. IMPRESSION: 1. Tendinosis with focal articular surface tearing involving the anterior two thirds of the infraspin atus tendon. 2. More prominent tendinosis of the supraspinatus tendon. 3. Moderate to severe glenohumeral joint arthropathy with intra-articular loose bodies. 4. Mild to moderate acromioclavicular joint arthropathy with suggestion of underlying impingement. Co rrelate clinically. 5. Superior labral tear.
== END | disposition home or self-care (01) ==
LOC: RADMRIMAIN 20:00
PROVIDERS: ATTEND Family Medicine
DX: S43.432A Superior glenoid labrum lesion of left shoulder, initial encounter (principal); M67.814 Other specified disorders of tendon, left shoulder; M19.012 Primary osteoarthritis, left shoulder; M25.812 Other specified joint disorders, left shoulder